=== PATIENT | female | born 1975 | race African-American/Black ===

== ENCOUNTER 2018-12-26 10:57 | Emergency (ER) | payer BC, MEDICAID ==
[2018-12-26] MEDS ORDERED: OXYCODONE-ACETAMINOPHEN 5-325 MG TABLET PO ONE (12:01)
--- NOTE | 2018-12-26 12:03 | ER Document Report ---
ED Medical Screen (RME) - General Chief Complaint: Back Pain Stated Complaint: BACK PAIN Time Seen by Provider: 12/26/18 11:52 Mode of Arrival: Ambulatory Information source: Patient Notes: Patient states she was lifting close into the washing machine and felt a sudden pop in the upper back area. Patient complains of severe pain since then. I have greeted and performed a rapid initial assessment of this patient. A comprehensive ED assessment and evaluation of the patient, analysis of test results and completion of the medical decision making process will be conducted by additional ED providers. TRAVEL OUTSIDE OF THE [place] IN LAST 30 DAYS: No - Related Data Allergies/Adverse Reactions: No Known Allergies Allergy (Unverified 12/26/18 11:29) Physical Exam - Vital signs Vitals: Temp Pulse Resp BP Pulse Ox 98.4 F 82 14 125/71 98 12/26/18 11:07 12/26/18 11:07 12/26/18 11:07 12/26/18 11:07 12/26/18 11:07 - Back Back: Vertebra tenderness - T7 area tenderness. No: Deformity/step-off, CVA tenderness Course - Vital Signs Vital signs: Temp Pulse Resp BP Pulse Ox 98.4 F 82 14 125/71 98 12/26/18 11:07 12/26/18 11:07 12/26/18 11:07 12/26/18 11:07 12/26/18 11:07
--- NOTE | 2018-12-26 12:32 | RADIOLOGY REPORT (SQ) ---
EXAM DESCRIPTION: T SPINE AP/LAT COMPLETED DATE/TIME: 12/26/2018 12:24 pm REASON FOR STUDY: lifting clothes into washer, felt pop in back COMPARISON: None. NUMBER OF VIEWS: Two views. TECHNIQUE: AP and lateral radiographic images acquired of the thoracic spine. LIMITATIONS: None. FINDINGS: MINERALIZATION: Normal. ALIGNMENT: Normal. No scoliosis. VERTEBRAE: No fracture or bone lesion. Maintained height, normal segmentation. DISCS: No significant loss of height or significant narrowing. No large osteophytes. HARDWARE: None in the spine. MEDIASTINUM AND SOFT TISSUES: Normal heart size and aortic contour. No soft tissue abnormality. VISUALIZED LUNG LABOY: Clear. OTHER: No other significant finding. IMPRESSION: NO SIGNIFICANT RADIOGRAPHIC FINDING IN THE THORACIC SPINE. TECHNICAL DOCUMENTATION: JOB ID: [id number] [employer]- All Rights Reserved Reading location - IP/workstation name: [email or web address]
--- NOTE | 2018-12-26 12:59 | ER Document Report ---
ED Neck/Back Problem - General Chief Complaint: Back Pain Stated Complaint: BACK PAIN Time Seen by Provider: 12/26/18 11:52 Primary Care Provider: DIANELYS JIMENES MD [Primary Care Provider] - Follow up as needed Mode of Arrival: Ambulatory Information source: Patient TRAVEL OUTSIDE OF THE [place] IN LAST 30 DAYS: No - HPI Patient complains to provider of: Pain, Upper back - Pt was lifting clothes from washing machine when she felt a "pop" in her mid back. She denies direct trauma. - Related Data Allergies/Adverse Reactions: No Known Allergies Allergy (Unverified 12/26/18 11:29) Past Medical History - General Information source: Patient - Social History Smoking Status: Unknown if Ever Smoked Family History: None Patient has suicidal ideation: No Patient has homicidal ideation: No Review of Systems - Review of Systems Constitutional: No symptoms reported EENT: No symptoms reported Cardiovascular: No symptoms reported Respiratory: No symptoms reported Gastrointestinal: No symptoms reported Musculoskeletal: See HPI, Back pain Neurological/Psychological: No symptoms reported -: Yes All other systems reviewed and negative Physical Exam - Vital signs Vitals: Temp Pulse Resp BP Pulse Ox 98.4 F 82 14 125/71 98 12/26/18 11:07 12/26/18 11:07 12/26/18 11:07 12/26/18 11:07 12/26/18 11:07 - General General appearance: Appears well In distress: Mild - HEENT Pharynx: Normal Neck: Normal - Respiratory Respiratory status: No respiratory distress Chest status: Nontender Breath sounds: Normal - Cardiovascular Rhythm: Regular Heart sounds: Normal auscultation Murmur: No - Back Back: Tender - there is min TTP of the mid thoracic spine diffusely with some paravertebral muscle spasm. FROM of spine; N/V intact. - Extremities General upper extremity: Normal inspection General lower extremity: Normal inspection - Neurological Neuro grossly intact: Yes Cognition: Normal Orientation: AAOx4 Speech: Normal Motor strength normal: LUE, RUE, LLE, RLE Sensory: Normal Course - Re-evaluation Re-evalutation: 12/26/18 13:14 pt. felt better after pain meds in ED - requested to go home with family - Vital Signs Vital signs: Temp Pulse Resp BP Pulse Ox 98.4 F 82 14 125/71 98 12/26/18 11:07 12/26/18 11:07 12/26/18 11:07 12/26/18 11:07 12/26/18 11:07 - Diagnostic Test Radiology reviewed: Reports reviewed - neg fx Discharge - Discharge Clinical Impression: Strain of thoracic back region Condition: Stable Disposition: HOME, SELF-CARE Instructions: Muscle Strain ([facility]), Oral Narcotic Medication ([facility]) Additional Instructions: rest, warm compresses, take meds as prescribed, return if worse Prescriptions: Cyclobenzaprine HCl [Flexeril 10 mg Tablet] 10 mg PO TIDP PRN #15 tab PRN Reason: Tramadol HCl [Ultram] 50 mg PO BID #14 tablet Referrals: DIANELYS JIMENES MD [Primary Care Provider] - Follow up as needed
[2018-12-26 14:13] VITALS: BP 113/56
== END 2018-12-26 14:13 | disposition home or self-care (01) ==
LOC: ER 10:57
DX: S29.012A Strain of muscle and tendon of back wall of thorax, initial encounter (principal); M62.830 Muscle spasm of back; X50.9XXA Other and unspecified overexertion or strenuous movements or postures, initial encounter
CPT/HCPCS: 72070; 99283